=== PATIENT | male | born 1960 | race Caucasian/White ===

== ENCOUNTER 2019-06-27 13:10 | Emergency (ER) | payer BC, OTHER ==
--- NOTE | 2019-06-27 14:30 | EDM.PDOC ---
ED HPI GENERAL MEDICAL PROBLEM - General Chief Complaint: General Stated Complaint: surgical wound opened Time Seen by Provider: 06/27/19 14:25 - History of Present Illness INITIAL COMMENTS - FREE TEXT/NARRATIVE: Pt with basal cell carcinoma removed on 06/08/19 tpday pt heard a "pop" noted wound on his back is 1 cm deep 3.5 x 1.5 wide on left shoulder. Onset: Today - Related Data Allergies Allergy/AdvReac Type Severity Reaction Status Date / Time cats Allergy Other Uncoded 06/27/19 14:06 dogs Allergy Other Uncoded 06/27/19 14:06 Past Medical History Cardiovascular History: Reports: High Cholesterol, Hypertension Respiratory History: Reports: Asthma Social & Family History - Tobacco Use Smoking Status *Q: Current Status Unknown ED ROS GENERAL - Review of Systems Review Of Systems: See Below Constitutional: Reports: No Symptoms HEENT: Reports: No Symptoms Respiratory: Reports: No Symptoms Cardiovascular: Reports: No Symptoms Endocrine: Reports: No Symptoms GI/Abdominal: Reports: No Symptoms : Reports: No Symptoms Musculoskeletal: Reports: No Symptoms Skin: Reports: Other (wound on left shoulder is 1 cm deep 3.5 x 1.5 wide) Neurological: Reports: No Symptoms Psychiatric: Reports: No Symptoms Hematologic/Lymphatic: Reports: No Symptoms Immunologic: Reports: No Symptoms ED EXAM, GENERAL - Physical Exam Exam: See Below Free Text/Narrative:: Wound is 1 cm deep 3.5 x 1.5 wide, will apply wet to dry dressing change daily. Pt to follow up with PCP Saturday for further care. Exam Limited By: No Limitations General Appearance: Alert, WD/WN, No Apparent Distress Ears: Normal External Exam Nose: Normal Inspection Throat/Mouth: Normal Inspection Head: Atraumatic, Normocephalic Neck: Normal Inspection Respiratory/Chest: No Respiratory Distress, Lungs Clear Extremities: Normal Inspection Neurological: Alert, Oriented Skin Exam: Wound/Incision, Other (1 cm deep 3.5 x 1.5 wide) Course - Vital Signs Last Recorded V/S: Last Vital Signs Temp 36.3 C 06/27/19 14:00 Pulse 58 L 06/27/19 14:00 Resp 18 06/27/19 14:00 BP 150/79 H 06/27/19 14:00 Pulse Ox 96 06/27/19 14:00 Departure - Departure Time of Disposition: 14:29 Disposition: Home, Self-Care 01 Clinical Impression: Wound dehiscence - Discharge Information Instructions: Wound Dehiscence, Lore-dc-Lrjd, How to Change Your Dressing Referrals: Brigid Padron DO [Primary Care Provider] - Forms: ED Department Discharge Additional Instructions: Follow up with pcp on Saturday for continued care.
== END 2019-06-27 14:36 | disposition home or self-care (01) ==
LOC: VM.ED 13:10
DX: T81.32XA Disruption of internal operation (surgical) wound, not elsewhere classified, initial encounter (principal); I10 Essential (primary) hypertension; Z91.048 Other nonmedicinal substance allergy status
CPT/HCPCS: 99282

== ENCOUNTER 2021-07-30 16:30 | Emergency (ER) | payer BC ==
[2021-07-30] MEDS ORDERED: Sodium Chloride 0.9% 10 ML Syringe FLUSH PRN (17:02)
--- NOTE | 2021-07-30 17:06 | EDM.PDOC ---
ED HPI GENERAL MEDICAL PROBLEM - General Stated Complaint: SOB Time Seen by Provider: 07/30/21 16:53 Source of Information: Reports: Patient - History of Present Illness INITIAL COMMENTS - FREE TEXT/NARRATIVE: Dada is a 60 y/o male who comes to the ER with SOB. He reports feeling this way for the last 2 days. SOB is worse with exercise. He has a hx of asthma and this feels like an exacerbation. Slight cough, no sputum. Denies any chest pain. No fever. Used his Albuterol inhaler but it did not really help. He has received the COVID vaccine and has also had a booster. - Related Data Allergies Allergy/AdvReac Type Severity Reaction Status Date / Time cats Allergy Other Uncoded 07/30/21 20:27 dogs Allergy Other Uncoded 07/30/21 20:27 Home Meds: Home Meds Brimonidine Tartrate/Timolol [Combigan 0.2%-0.5% Eye Drops] 5 ml EYELF BID 06/27/19 [History] Brinzolamide [Azopt 1% Ophth Susp] 1 drop EYELF BID 06/27/19 [History] Clobetasol [Clobetasol 0.05%] 30 gm TOP BID 06/27/19 [History] Blackwell-3 Fatty Acids [Blackwell-3] 100 mg PO DAILY 06/27/19 [History] Potassium Chloride 1 tab PO DAILY 06/27/19 [History] Simvastatin 1 tab PO DAILY 06/27/19 [History] Telmisartan/Hctz 1 tab PO DAILY 06/27/19 [History] Ubidecarenone [Co Q-10] 200 mg PO DAILY 06/27/19 [History] amLODIPine Besylate [Amlodipine Besylate] 1 tab PO DAILY 06/27/19 [History] Albuterol Sulfate [Albuterol Sulfate Hfa] 2 puff INH Q4H PRN #18 07/30/21 [Rx] predniSONE [Prednisone] 40 mg PO DAILY #14 tablet 07/30/21 [Rx] Past Medical History Cardiovascular History: Reports: High Cholesterol, Hypertension Respiratory History: Reports: Asthma Review of Systems - Review of Systems Review Of Systems: See Below Constitutional: Reports: No Symptoms Eyes: Reports: No Symptoms Ears: Reports: Clear Discharge Nose: Reports: No Symptoms Mouth/Throat: Reports: No Symptoms Respiratory: Reports: Shortness of Breath, Cough GI/Abdominal: Reports: No Symptoms Genitourinary: Reports: No Symptoms Musculoskeletal: Reports: No Symptoms Skin: Reports: No Symptoms Neurological: Reports: No Symptoms Psychiatric: Reports: No Symptoms ED EXAM, GENERAL - Physical Exam Exam: See Below General Appearance: Alert, WD/WN, No Apparent Distress (Obese adult male, sitting quietly on the ER cart.) Eye Exam: Bilateral Eye: PERRL Ears: Normal External Exam, Normal Canal, Hearing Grossly Normal, Normal TMs Nose: Normal Inspection, Normal Mucosa, No Blood Throat/Mouth: Normal Inspection, Normal Lips, Normal Teeth, Normal Oropharynx, Normal Voice Head: Atraumatic, Normocephalic Neck: Supple Respiratory/Chest: No Respiratory Distress, Lungs Clear Cardiovascular: Normal Peripheral Pulses, Regular Rate, Rhythm, No Murmur GI/Abdominal: Normal Bowel Sounds, Soft, Non-Tender (Male) Exam: Deferred Rectal (Males) Exam: Deferred Back Exam: Normal Inspection Extremities: Normal Inspection, Normal Range of Motion, Normal Capillary Refill Neurological: Alert, Oriented, CN II-XII Intact, Normal Cognition, Normal Gait, No Motor/Sensory Deficits Skin Exam: Warm, Dry, Intact, Normal Color, No Rash Lymphatic: No Adenopathy #1 Interpretation EKG Date: 07/30/21 Time: 18:00 Rhythm: NSR Rate (Beats/Min): [address]: Normal P-Wave: Present QRS: Normal ST-T: Normal QT: Normal EKG Interpretation Comments: Normal Sinus Rhythm, Course - Vital Signs Text/Narrative:: 1652 The patient was seen by the [facility]. Labs, EKG, and CXR ordered. His sat on room air was 96%. 1845 EKG neg, Trop neg. CMP K=3.3. COVID=positive, D Dimer=0.61. CTA ordered. Sats okay and breathing unlabored. Prednisone 40mg po given. 2204 CT results pending. Reports breathing better since taking the Prednisone. Discussed MAB infusion with patient. 2244 CT still pending, will call pt with results. ASA 324mg po given. Pt will think about the MAB infusion and let us know. Written instructions were given and he left the ER in stable condition. Last Recorded V/S: Last Vital Signs Temp 36.9 C 07/30/21 17:00 Pulse 54 L 07/30/21 17:00 Resp 20 07/30/21 17:00 BP 131/76 07/30/21 17:00 Pulse Ox 94 L 07/30/21 17:00 - Orders/Labs/Meds Orders: Active Orders 24 hr Category Date Time Status Sodium Chloride 0.9% [Saline Flush] Med 07/30/21 17:02 Active 10 ml FLUSH ASDIRECTED PRN Saline Lock Insert [OM.PC] Stat Oth 07/30/21 17:02 Ordered Medication Orders Sodium Chloride (Sodium Chloride 0.9% 10 Ml Syringe) 10 ml FLUSH ASDIRECTED PRN PRN Reason: Keep Vein Open Labs: Laboratory Tests 07/30/21 07/30/21 07/30/21 Range/Units 17:22 17:22 17:22 WBC 6.0 (4.0-10.0) x10^3/uL RBC 5.28 (4.5-6.0) x10^6/uL Hgb 15.0 (14.0-18.0) g/dL Hct 43.9 (40.0-52.0) % MCV 83.1 (78.0-93.0) fL MCH 28.4 (26.0-32.0) pg MCHC 34.2 (32.0-36.0) g/dL RDW Coeff of Mercy 13.4 (10.0-15.0) % Plt Count 211 (130-400) x10^3/uL Immature Gran % (Auto) 0.50 H (0.00-0.43) % Neut % (Auto) 48.1 L (50.0-80.0) % Lymph % (Auto) 33.1 (25.0-50.0) % Atkinson % (Auto) 14.0 H (2.0-11.0) % Eos % (Auto) 3.3 (0.0-4.0) % Baso % (Auto) 1.0 (0.2-1.2) % Neut # (Auto) 2.9 (1.8-7.7) x10^3/uL Lymph # (Auto) 2.0 (1.0-4.8) x10^3/uL Atkinson # (Auto) 0.8 (0.0-0.8) x10^3/uL Eos # (Auto) 0.2 (0.0-0.5) x10^3/uL Baso # (Auto) 0.1 (0.0-0.2) x10^3/uL Immature Gran # (Auto) 0.03 (0.00-0.07) x10^3/uL D-Dimer, Quantitative 0.61 H (<=0.58) mg/LFEU Sodium 145 (136-145) mmol/L Potassium 3.3 L (3.5-5.1) mmol/L Chloride 105 (98-107) mmol/L Carbon Dioxide 34 H (21-32) mmol/L Anion Gap 9.3 (5-15) mmol/L BUN 16 (7-18) mg/dL Creatinine 1.0 (0.70-1.30) mg/dL Est Cr Clr Drug Dosing TNP Estimated GFR (MDRD) > 60 Glucose 109 H (70-99) mg/dL Lactic Acid (0.4-2.0) mmol/L Calcium 8.8 (8.5-10.1) mg/dL Corrected Calcium 9.4 (8.5-10.1) mg/dL Magnesium 1.8 (1.8-2.4) mg/dL Total Bilirubin 0.4 (0.2-1.0) mg/dL AST 35 (15-37) U/L ALT 41 (16-63) U/L Alkaline Phosphatase 74 (46-116) U/L Troponin I High Sens 43 (<=76) ng/L C-Reactive Protein 0.6 (<=0.9) mg/dL Total Protein 7.1 (6.4-8.2) g/dL Albumin 3.2 L (3.4-5.0) g/dL Globulin 3.9 Albumin/Globulin Ratio 0.82 Influenza Type A RNA (NEGATIVE) Influenza Type B RNA (NEGATIVE) SARS-CoV-2 RNA (JOSSUE) (NEGATIVE) 07/30/21 07/30/21 Range/Units 17:22 18:05 WBC (4.0-10.0) x10^3/uL RBC (4.5-6.0) x10^6/uL Hgb (14.0-18.0) g/dL Hct (40.0-52.0) % MCV (78.0-93.0) fL MCH (26.0-32.0) pg MCHC (32.0-36.0) g/dL RDW Coeff of Mercy (10.0-15.0) % Plt Count (130-400) x10^3/uL Immature Gran % (Auto) (0.00-0.43) % Neut % (Auto) (50.0-80.0) % Lymph % (Auto) (25.0-50.0) % Atkinson % (Auto) (2.0-11.0) % Eos % (Auto) (0.0-4.0) % Baso % (Auto) (0.2-1.2) % Neut # (Auto) (1.8-7.7) x10^3/uL Lymph # (Auto) (1.0-4.8) x10^3/uL Atkinson # (Auto) (0.0-0.8) x10^3/uL Eos # (Auto) (0.0-0.5) x10^3/uL Baso # (Auto) (0.0-0.2) x10^3/uL Immature Gran # (Auto) (0.00-0.07) x10^3/uL D-Dimer, Quantitative (<=0.58) mg/LFEU Sodium (136-145) mmol/L Potassium (3.5-5.1) mmol/L Chloride (98-107) mmol/L Carbon Dioxide (21-32) mmol/L Anion Gap (5-15) mmol/L BUN (7-18) mg/dL Creatinine (0.70-1.30) mg/dL Est Cr Clr Drug Dosing Estimated GFR (MDRD) Glucose (70-99) mg/dL Lactic Acid 1.2 (0.4-2.0) mmol/L Calcium (8.5-10.1) mg/dL Corrected Calcium (8.5-10.1) mg/dL Magnesium (1.8-2.4) mg/dL Total Bilirubin (0.2-1.0) mg/dL AST (15-37) U/L ALT (16-63) U/L Alkaline Phosphatase (46-116) U/L Troponin I High Sens (<=76) ng/L C-Reactive Protein (<=0.9) mg/dL Total Protein (6.4-8.2) g/dL Albumin (3.4-5.0) g/dL Globulin Albumin/Globulin Ratio Influenza Type A RNA Negative (NEGATIVE) Influenza Type B RNA Negative (NEGATIVE) SARS-CoV-2 RNA (JOSSUE) Positive H (NEGATIVE) Meds: Medications Generic Name Dose Route Start Last Admin Trade Name Frejessica PRN Reason Stop Dose Admin Sodium Chloride 10 ml 07/30/21 17:02 Sodium Chloride 0.9% 10 Ml Syringe FLUSH ASDIRECTED PRN Keep Vein Open Discontinued Medications Generic Name Dose Route Start Last Admin Trade Name Freq PRN Reason Stop Dose Admin Aspirin 324 mg 07/30/21 22:43 Aspirin 81 Mg Tab.Chew PO 07/30/21 22:44 ONETIME ONE Iopamidol 100 ml 07/30/21 19:23 07/30/21 20:29 Iopamidol 755 Mg/Ml 100 Ml Bottle IVPUSH 07/30/21 19:24 100 ml ONETIME ONE Administration Prednisone 40 mg 07/30/21 19:08 07/30/21 19:52 Prednisone 20 Mg Tab PO 07/30/21 19:09 40 mg NOW STA Administration Departure - Departure Time of Disposition: 22:45 Disposition: Home, Self-Care 01 Condition: Good Clinical Impression: COVID-19 - Discharge Information Prescriptions: Albuterol Sulfate [Albuterol Sulfate Hfa] 2 puff INH Q4H PRN #18 PRN Reason: Shortness Of Breath predniSONE [Prednisone] 40 mg PO DAILY #14 tablet Instructions: COVID-19 Frequently Asked Questions Referrals: Brigid Padron DO [Primary Care Provider] - Additional Instructions: -Prednisone 20mg 2 tablets oral daily x 7 days #14(Rx) -Albuterol inhaler 2 puffs every 4 hours as needed for shortness of breath #18gm (Rx) -Start taking Aspirin 325mg oral daily -Continue Albuterol as needed -Quarantine for the next 10 days. -Follow up with your PCP for any other concerns or return to the ER. Sepsis Event Note (ED) - Focused Exam Vital Signs: Vital Signs Temp Pulse Resp BP Pulse Ox 07/30/21 17:00 36.9 C 54 L 20 131/76 94 L - Problem List & Annotations (1) COVID-19 SNOMED Code(s): 486472534 Code(s): U07.1 - COVID-19 Status: Acute Current Visit: Yes Annotation/Comment:: CTA pending, will notifiy pt of results if needed. ASA started. Also started on course of Prednsione. Pt to let us know baout MAB infusion. - Problem List Review Problem List Initiated/Reviewed/Updated: Yes - My Orders Last 24 Hours: My Active Orders 07/30/21 17:02 Sodium Chloride 0.9% [Saline Flush] 10 ml FLUSH ASDIRECTED PRN Saline Lock Insert [OM.PC] Stat - Assessment/Plan Last 24 Hours: My Active Orders 07/30/21 17:02 Sodium Chloride 0.9% [Saline Flush] 10 ml FLUSH ASDIRECTED PRN Saline Lock Insert [OM.PC] Stat Plan: See above
[2021-07-30 17:56] LABS: CHLORIDE,CL 105 mmol/L (98-107); SODIUM,NA 145 mmol/L (136-145)
[2021-07-30 17:57] LABS: ANION GAP 9.3 mmol/L (5-15)
--- NOTE | 2021-07-30 18:37 | CR ---
[id number] RAD/RAD Chest PA or AP 1V EXAM: RAD Chest PA or AP 1V INDICATION: SOB X2DAYS. COMPARISON: None. DISCUSSION: Cardiomediastinal silhouette is normal in size and contour. No infiltrate, effusion, pneumothorax, or edema. IMPRESSION: No acute cardiopulmonary abnormality. Vishal Francis DO 07/30/21 [id number] Thank you for allowing us to participate in the care of your patient.
[2021-07-30 18:58] LABS: CORONAVIRUS COVID-19 NAA POSITIVE (NEGATIVE)
[2021-07-30] MEDS ORDERED: predniSONE 20 MG Tab PO STA (19:08)
[2021-07-30] MEDS ORDERED: Iopamidol 755 Mg/ML 100 ML Bottle IVPUSH ONE (19:23)
--- NOTE | 2021-07-30 20:18 | CT ---
[id number] CT/CTA Chest EXAM: CT ANGIOGRAM CHEST INDICATION: COVID POSITIVE. ELEVATED DDIMER. COMPARISON: None. DISCUSSION: The pulmonary arteries are normal in appearance with no emboli identified. The lungs are clear with no nodule, infiltrate or mass identified.No pleural or pericardial effusion. Coronary artery disease. Atherosclerotic calcifications of the aorta and its branches. No mediastinal, hilar or axillary lymphadenopathy. The imaged upper abdomen and osseous structures are unremarkable. IMPRESSION: 1. No evidence of acute pulmonary embolism. Vishal Franics DO 07/30/[id number] Thank you for allowing us to participate in the care of your patient.
[2021-07-30] MEDS ORDERED: Aspirin 81 MG Tab.Chew PO ONE (22:43)
== END 2021-07-30 22:50 | disposition home or self-care (01) ==
LOC: VM.ED 16:30
DX: U07.1 COVID-19 (principal); E78.00 Pure hypercholesterolemia, unspecified; I10 Essential (primary) hypertension; Z91.09 Other allergy status, other than to drugs and biological substances; Z79.899 Other long term (current) drug therapy
CPT/HCPCS: 0240U; 36415; 71045; 71275; 80053; 83605; 83735; 84484; 85025; 85379; 86140; 93005; 93010; 99284; 99285-25; A9270-GY; J7512; Q9967